=== PATIENT | male | born 1995 | race American Indian/Alaskan Native ===

== ENCOUNTER 2018-12-23 10:32 | Emergency (ER) | payer SELFPAY ==
--- NOTE | 2018-12-23 11:24 | XRay Report ---
CHEST 1 VIEW 10:55 AM INDICATION / CLINICAL INFORMATION: Chest pain for one day. COMPARISON: None available. FINDINGS: SUPPORT DEVICES: None. HEART / MEDIASTINUM: The heart size and pulmonary vasculature are normal. The aorta is normal in terri prosper. LUNGS / PLEURA: No significant pulmonary or pleural abnormality. No pneumothorax. ADDITIONAL FINDINGS: No significant additional findings. IMPRESSION: No acute findings. Signer Name: Luca Pearson MD Signed: 12/23/2018 11:19 AM Workstation Name: [id number]
[2018-12-23] MEDS ORDERED: NORCO 5/325 PO ONE (11:51)
[2018-12-23] MEDS ORDERED: PROVENTIL IH ONE (11:52)
[2018-12-23] MEDS ORDERED: IBUPROFEN PO ONE (11:52)
--- NOTE | 2018-12-23 11:57 | Emergency Department Report ---
ED General Adult HPI - General Chief complaint: Chest Pain Stated complaint: CHEST PAIN Time Seen by Provider: 12/23/18 11:49 Source: patient Mode of arrival: Ambulatory Limitations: No Limitations - History of Present Illness Initial comments: Patient is a 23-year-old -[place] male who presents for 910 left lateral chest wall pain with shortness of breath exacerbated by movement and breathing patient denies fall injury or trauma patient denies asthma bronchitis there is no fever no chills as sudden onset no history of PE or blood clot patie nt denies substance denies smoking denies EtOH patient states pain is constant for the last 2 days Onset/Timin -: days(s) Location: chest Radiation: non-radiation Severity scale (0 -10): 9 Quality: sharp Consistency: constant Improves with: none Worsens with: movement, other (deep inspiration) Associated Symptoms: chest pain, shortness of breath. denies: cough, nausea/vomiting, syncope, weakness Treatments Prior to Arrival: none - Related Data Previous Rx's Medication Instructions Recorded Last Taken Type ALBUTEROL Inhaler (OR & NICU) 2 puff IH QID PRN #1 inhalation 12/23/18 Unknown Rx [ProAir HFA Inhaler] Benzonatate [Tessalon Perles] 100 mg PO Q8HR PRN #30 capsule 12/23/18 Unknown Rx Naproxen 500 mg PO BID PRN #30 tablet 12/23/18 Unknown Rx predniSONE [Deltasone] 40 mg PO QDAY #10 tab 12/23/18 Unknown Rx Allergies Allergy/AdvReac Type Severity Reaction Status Date / Time No Known Allergies Allergy Unverified 12/23/18 10:35 ED Review of Systems ROS: Stated complaint: CHEST PAIN Other details as noted in HPI Constitutional: denies: chills, fever Eyes: denies: eye pain, eye discharge, vision change Respiratory: shortness of breath. denies: cough, wheezing Cardiovascular: chest pain Endocrine: no symptoms reported Gastrointestinal: as per HPI. denies: abdominal pain, nausea, vomiting, diarrhea, constipation, melena Genitourinary: denies: urgency, dysuria Musculoskeletal: denies: back pain, joint swelling, arthralgia Skin: denies: rash, lesions Neurological: denies: headache, weakness, paresthesias Psychiatric: anxiety Hematological/Lymphatic: denies: easy bleeding, easy bruising ED Past Medical Hx - Past Medical History Previous Medical History?: No - Surgical History Past Surgical History?: No - Social History Smoking Status: Never Smoker Substance Use Type: Alcohol - Medications Home Medications: Home Medications Medication Instructions Recorded Confirmed Last Taken Type ALBUTEROL Inhaler (OR & NICU) 2 puff IH QID PRN #1 inhalation 12/23/18 Unknown Rx [ProAir HFA Inhaler] Benzonatate [Tessalon Perles] 100 mg PO Q8HR PRN #30 capsule 12/23/18 Unknown Rx Naproxen 500 mg PO BID PRN #30 tablet 12/23/18 Unknown Rx predniSONE [Deltasone] 40 mg PO QDAY #10 tab 12/23/18 Unknown Rx ED Physical Exam - General Limitations: No Limitations General appearance: alert, in no apparent distress - Head Head exam: Present: atraumatic, normocephalic - Eye Eye exam: Present: normal appearance, PERRL, EOMI Pupils: Present: normal accommodation - ENT ENT exam: Present: normal orophraynx, mucous membranes moist, TM's normal bilaterally, normal external ear exam - Neck Neck exam: Present: normal inspection, full ROM. Absent: tenderness, mening ismus, lymphadenopathy, thyromegaly - Expanded Neck Exam Expanded Neck exam: Absent: tenderness, midline deformity, anterior neck swelling, thyr oid mass, carotid bruit, tracheal deviation - Respiratory Respiratory exam: Present: normal lung sounds bilaterally, chest wall tenderness (left anterior lateral chest wall pain tenderness ). Absent: respiratory distress, wheezes, rales, rhonchi, stridor, prolonged expiratory - Cardiovascular Cardiovascular Exam: Present: regular rate, normal rhythm, normal heart sounds. Absent: systolic murmur, diastolic murmur, rubs, gallop - GI/Abdominal GI/Abdominal exam: Present: soft, normal bowel sounds. Absent: distended, tenderness, guarding, rebound, rigid, bruit, hernia - Rectal Rectal exam: Present: deferred - Extremities Exam Extremities exam: Present: normal inspection - Back Exam Back exam: Present: normal inspection, full ROM. Absent: tenderness, CVA te nderness (R), CVA tenderness (L), muscle spasm, paraspinal tenderness, rash noted - Neurological Exam Neurological exam: Present: alert, oriented X3 - Psychiatric Psychiatric exam: Present: normal affect, normal mood - Skin Skin exam: Present: warm, dry, intact, normal color. Absent: rash ED Course Vital Signs 12/23/18 12/23/18 10:44 10:54 Temperature 98.5 F Pulse Rate 80 Respiratory 16 17 Rate Blood Pressure 153/90 O2 Sat by Pulse 97 Oximetry ED Medical Decision Making - Lab Data Result diagrams: 12/23/18 12:32 12/23/18 12:32 Lab Results 12/23/18 12/23/18 12/23/18 Range/Units 12:32 12:32 12:32 WBC 5.9 (4.5-11.0) K/mm3 RBC 5.56 H (3.65-5.03) M/mm3 Hgb 14.9 (11.8-15.2) gm/dl Hct 43.5 (35.5-45.6) % MCV 78 L (84-94) fl MCH 27 L (28-32) pg MCHC 34 (32-34) % RDW 13.7 (13.2-15.2) % Plt Count 232 (140-440) K/mm3 PT 23.2 H (12.2-14.9) Sec. INR 2.11 H (0.87-1.13) APTT 29.1 (24.2-36.6) Sec. D-Dimer > 87970 H (0-234) ng/mlDDU Sodium 140 (137-145) mmol/L Potassium 4.4 (3.6-5.0) mmol/L Chloride 102.0 (98-107) mmol/L Carbon Dioxide 28 (22-30) mmol/L Anion Gap 14 mmol/L BUN 12 (9-20) mg/dL Creatinine 0.9 (0.8-1.5) mg/dL Estimated GFR > 60 ml/min BUN/Creatinine Ratio 13 % Glucose 94 (75-100) mg/dL Calcium 10.1 (8.4-10.2) mg/dL Total Bilirubin 0.50 (0.1-1.2) mg/dL AST 31 (5-40) units/L ALT 17 (7-56) units/L Alkaline Phosphatase 72 (35-129) units/L Total Protein 7.9 (6.3-8.2) g/dL Albumin 5.1 H (3.9-5) g/dL Albumin/Globulin Ratio 1.8 % 12/23/18 12/23/18 Range/Units 14:30 14:30 WBC (4.5-11.0) K/mm3 RBC (3.65-5.03) M/mm3 Hgb (11.8-15.2) gm/dl Hct (35.5-45.6) % MCV (84-94) fl MCH (28-32) pg MCHC (32-34) % RDW (13.2-15.2) % Plt Count (140-440) K/mm3 PT 13.5 (12.2-14.9) Sec. INR 1.06 (0.87-1.13) APTT 30.6 (24.2-36.6) Sec. D-Dimer 208.92 227.48 (0-234) ng/mlDDU Sodium (137-145) mmol/L Potassium (3.6-5.0) mmol/L Chloride (98-107) mmol/L Carbon Dioxide (22-30) mmol/L Anion Gap mmol/L BUN (9-20) mg/dL Creatinine (0.8-1.5) mg/dL Estimated GFR ml/min BUN/Creatinine Ratio % Glucose (75-100) mg/dL Calcium (8.4-10.2) mg/dL Total Bilirubin (0.1-1.2) mg/dL AST (5-40) units/L ALT (7-56) units/L Alkaline Phosphatase (35-129) units/L Total Protein (6.3-8.2) g/dL Albumin (3.9-5) g/dL Albumin/Globulin Ratio % - EKG Data EKG shows normal: sinus rhythm, axis, intervals, QRS complexes, ST-T waves Rate: normal - EKG Data When compared to previous EKG there are: previous EKG unavailable Interpretation: normal EKG - Radiology Data Radiology results: report reviewed, image reviewed Ordering Physician: SALVADOR TERESA MD Date of Service: 12/23/18 Procedure(s): XR chest 1V ap Accession Number(s): [id number] cc: ED MD BRII Fluoro Time In Minutes: CHEST 1 VIEW 10:55 AM INDICATION / CLINICAL INFORMATION: Chest pain for one day. COMPARISON: None available. FINDINGS: SUPPORT DEVICES: None. HEART / MEDIASTINUM: The heart size and pulmonary vasculature are normal. The aorta is normal in caliber. LUNGS / PLEURA: No significant pulmonary or pleural abnormality. No pneumothorax. ADDITIONAL FINDINGS: No significant additional findings. IMPRESSION: No acute findings. Signer Name: Luca Pearson MD Signed: 12/23/2018 11:19 AM Workstation Name: [id number] Transcribed By: RT Dictated By: Luca Pearson MD Electronically Authenticated By: Luca Pearson MD Signed Date/Time: 12/23/181118 DD/ 18 TD/TT: Ordering Physician: EUSEBIO DOAN MD Date of Service: 12/23/18 Procedure(s): CT angio abdomen pelvis Accession Number(s): [id number] cc: EUSEBIO DOAN MD CTA CHEST WITH CONTRAST CTA ABDOMEN AND PELVIS INDICATION : chest pain. Evaluate for aortic dissection TECHNIQUE: Axial imaging performed through the chest, with contrast bolus timing set to maximize opacification of the aorta. Sagittal and coronal reformatted images. 3-plane MIP reformatted images were obtained. All CT scans at this location are performed using CT dose reduction for ALARA by means of automated exposure control. 100 mL of intravenous contrast administered. COMPARISON: None FINDINGS: The thoracic aorta, abdominal aorta, common iliac arteries, external iliac arteries and internal iliac arteries are widely patent with no evidence of atherosclerotic disease. No dissection or aneurysm. There is also wide patency of the celiac axis, SMA, VICENTA, and bilateral renal arteries. The thyroid gland, tracheobronchial tree and esophagus are unremarkable. The heart is normal size. No pericardial abnormality. The lungs are clear. No significant parenchymal disease, pleural effusion or pneumothorax. The liver, biliary system, pancreas, spleen, adrenal glands, kidneys, collecting systems and bladder are unremarkable. The bowel loops are normal caliber. No focal inflammation or obvious mass. No obstruction. The appendix is normal. The bony structures are intact. No bony lesion or significant degenerative clay ges. IMPRESSION: Unremarkable CTA of the chest abdomen and pelvis. No evidence for aortic dissection. Signer Name: Syed Sunshine Jr, MD Signed: 12/23/2018 3:03 PM Workstation Name: [id number] Transcribed By: TTR Dictated By: SYED SUNSHINE JR, MD Electronically Authenticated By: SYED SUNSHINE JR, MD Signed Date/Time: 12/23/18 1503 DD/ 1253 TD/TT: - Medical Decision Making cta neg, cxr normal no infiltrates no opacities, cp is improved plan; dc to home with rx of naproxen albuterol, prednisone, tessalon pearls, follow up pcp in 2-3 days Critical care attestation.: If time is entered above; I have spent that time in minutes in the direct care of this critically ill patient, excluding procedure time. ED Disposition Clinical Impression: Bronchitis, Costochondritis, acute Disposition: DC-01 TO HOME OR SELFCARE Is pt being admited?: No Does the pt Need Aspirin: No Condition: Stable Instructions: Acute Bronchitis (ED), Chest Pain (ED) Prescriptions: predniSONE [Deltasone] 40 mg PO QDAY #10 tab Naproxen 500 mg PO BID PRN #30 tablet PRN Reason: pain ALBUTEROL Inhaler (OR & NICU) [ProAir HFA Inhaler] 2 puff IH QID PRN #1 inhalation PRN Reason: Shortness Of Breath Benzonatate [Tessalon Perles] 100 mg PO Q8HR PRN #30 capsule PRN Reason: Cough Referrals: [facility] [Outside] - 3-5 Days Forms: Work/School Release Form(ED) Time of Disposition: 16:15
[2018-12-23 12:53] LABS: Hematocrit 43.5 % (35.5-45.6); Hemoglobin 14.9 gm/dl (11.8-15.2); Mean Corpuscular HGB Conc 34 % (32-34); Mean Corpuscular Volume 78 fl (84-94); Platelet Count 232 K/mm3 (140-440); Red Blood Count 5.56 M/mm3 (3.65-5.03); Red Cell Distribution Width 13.7 % (13.2-15.2)
[2018-12-23 12:55] LABS: INR 2.11 (0.87-1.13)
[2018-12-23 13:08] LABS: Alanine Aminotransferase 17 units/L (7-56); Albumin 5.1 g/dL (3.9-5); BUN/Creatinine Ratio 13; Blood Urea Nitrogen 12 mg/dL (9-20); Calcium 10.1 mg/dL (8.4-10.2); Hemolysis Index 2
[2018-12-23 13:26] LABS: Partial Thromboplastin Time 29.1 Sec. (24.2-36.6)
[2018-12-23 14:52] LABS: INR 1.06 (0.87-1.13); Partial Thromboplastin Time 30.6 Sec. (24.2-36.6)
--- NOTE | 2018-12-23 15:08 | Cat Scan Report ---
CTA CHEST WITH CONTRAST CTA ABDOMEN AND PELVIS INDICATION : chest pain. Evaluate for aortic dissection TECHNIQUE: Axial imaging performed through the chest, with contrast bolus timing set to maximize opa cification of the aorta. Sagittal and coronal reformatted images. 3-plane MIP reformatted images were obtained. All CT scans at this location are performed using CT dose reduction for ALARA by means of automated exposure control. 100 mL of intravenous contrast administered. COMPARISON: None FINDINGS: The thoracic aorta, abdominal aorta, common iliac arteries, external iliac arteries and internal luann c arteries are widely patent with no evidence of atherosclerotic disease. No dissection or aneurysm. There is also wide patency of the celiac axis, SMA, VICENTA, and bilateral renal arteries. The thyroid gland, tracheobronchial tree and esophagus are unremarkable. The heart is normal size. No pericardial abnormality. The lungs are clear. No significant parenchymal disease, pleural effusion or pneumothorax. The liver, biliary system, pancreas, spleen, adrenal glands, kidneys, collecting systems and bladder are unremarkable. The bowel loops are normal caliber. No focal inflammation or obvious mass. No obstr uction. The appendix is normal. The bony structures are intact. No bony lesion or significant degenerative changes. IMPRESSION: Unremarkable CTA of the chest abdomen and pelvis. No evidence for aortic dissection. Signer Name: Syed Sunshine Jr, MD Signed: 12/23/2018 3:03 PM Workstation Name: [id number]
[2018-12-23 16:27] VITALS: BP 115/82
== END 2018-12-23 16:25 | disposition home or self-care (01) ==
LOC: ED 10:32
DX: M94.0 Chondrocostal junction syndrome [Tietze] (principal); J40 Bronchitis, not specified as acute or chronic
CPT/HCPCS: 36415; 71045; 71275; 74174; 80053; 85027; 85379; 85610; 85730; 93005; 93010; 99285; Q9967; 94640